=== PATIENT | male | born 1990 | race Caucasian/White ===

== ENCOUNTER 2018-07-10 16:18 | Emergency (ER) | payer SELFPAY ==
[2018-07-10 16:19] VITALS: BP 130/72; PULSE 110; RESP 18; TEMP 36.7; O2SAT 97; BMI 20.3
--- NOTE | 2018-07-10 16:48 | ED.VISSUMM ---
- ER Visit Summary Date of Service: 07/10/18 Chief Complaint: Right index finger laceration History of Present Illness: The patient is a 28 M who presents for evaluation of the right index finger laceration. Patient had a pipe fall and hit him on the finger. He is not sure of a pipe with a grinder machine setter caused the injury. He denies any loss of sensation or ability to move the finger, other than limited secondary to pain. Tetanus is up-to-date as of 4 months ago. Patient has no bleeding disorders. He is not on any blood thinners. No other injuries. Physical Examination: Patient is afebrile, well-nourished and well-developed sitting in bed in no distress. Examination of the right upper extremity shows a 2cm avulsion flap with attached skin on the distal end, crossing the radial side of the PIP joint. Wound is dirty. DIP, MCP movement intact. Patient will not flex PIP due to pain. Sensation intact distal to the injury. No other injuries noted. Test Results: Clinical Impression(s) from Imaging Studies Finger X-Ray 07/10/18 18:32 IMPRESSION: No acute bony injury of the finger. Electronically Signed: Kosta Palmer DO at 19:24 EST Tel [phone], Service support , Medications Given Discontinued Medications Cefadroxil (Duricef) 1,000 mg PO X1 ONE Stop: 07/10/18 18:16 Last Admin: 07/10/18 19:36 Dose: 1,000 mg Tetracaine/Epinephrine/Lidocaine (Let Soln) 1 applic TOPICAL X1 ONE Stop: 07/10/18 16:49 Last Admin: 07/10/18 16:54 Dose: 1 applic Emergency Department Course and Treatment: The wound was copiously irrigated under tap water. Patient was unable to tolerate further cleansing exploration of the wound but did not want to use any injectable anesthetic, thus let was applied to the wound. Achieving good anesthesia, a finger tourniquet was placed and the wound was explored in a bloodless field. The skin flap was mostly dirty and devitalized, and thus was trimmed. Exploration of the wound showed dirty internal structures, with an area concerning for macerated tendon on the radial side of the PIP joint. Unable to appropriately cleanse the wound due to embedded dirt along the wound edges and the structures exposed in the wound. The tourniquet was removed and Dr. Shea was consulted regarding dirty wound and concern for tendinous injury. He advised to cover the wound with Betadine soaked dressing, dressed with a bulky dressing, and have the patient call his office first thing in the morning to arrange a follow-up appointment. The wound was covered with nonocclusive gauze, Betadine soaked dressing, fluff 4 x 4's, and then wrapped with Kerlix. Finally an AlumaFoam splint was placed to stabilize the finger. Patient was started on Duricef and given a prescription for the same. His tetanus is already up-to-date. He was discharged home with follow-up instructions per Dr. Shea. Treatment Plan: [] Disposition: [] Impression: Right index finger 2 cm deep avulsion laceration with tendon injury This note was generated with [employer] dictation software. It may contain incorrect words, spelling, and punctuation that were not noted in review of the chart prior to signing ED Disposition - Plan for ED Patient: Disposition: Home or Assisted Living Chief Complaint: Laceration Instructions: ED Laceration Hand, ED Laceration Tendon Prescriptions: RX: Cefadroxil [Duricef] 500 mg PO BID #14 cap Referrals: Emeka Shea MD [STAFF PHYSICIAN] - 1 Day [facility] Doctor,Out of [Primary Care Provider] - Additional Instructions: Call Dr. Shea's office first thing tomorrow morning to schedule an appointment for your hand as soon as possible. In the meantime take the antibiotic twice daily as prescribed. Keep your finger bandaged, clean and dry. Do not remove the bandaging and thus instructed to by Dr. Shea. Use [id number] pain medication as needed. If you have any severe uncontrolled pain, change in color or temperature of the finger, or any other concerns, return immediately to the emergency department for another evaluation.
[2018-07-10] MEDS: Lidocaine/Epi/Tetracaine 50 ML 1 APPLIC TOPICAL (16:54)
--- NOTE | 2018-07-10 18:10 | NURSING ---
DR FADY PEDROZA
--- NOTE | 2018-07-10 18:32 | RAD_ITS ---
STUDY: X-RAY - RIGHT HAND, ATTENTION SECOND FINGER REASON FOR EXAM: Male, 28 years old. Laceration TECHNIQUE: 3 view(s) of the finger were obtained. COMPARISON: None. FINDINGS: Normal metacarpal head. Normal metacarpophalangeal joint. Normal proximal phalanx. Normal middle phalanx. Normal distal phalanx. Normal proximal interphalangeal joint. Normal distal interphalangeal joint. Probable laceration just proximal to the proximal interphalangeal joint level. No radiopaque foreign body. RAD/Finger(s) Min 2 Views IMPRESSION: No acute bony injury of the finger. Electronically Signed: Kosta Palmer DO at 19:24 EST Tel [phone], Service support ,
[2018-07-10] MEDS: Cefadroxil 500 MG CAPSULE 1000 MG PO (19:36)
--- NOTE | 2018-07-10 19:55 | DCINST.ED_ITS ---
ED Disposition - Plan for ED Patient: Disposition: Home or Assisted Living Chief Complaint: Laceration Instructions: ED Laceration Tendon, ED Laceration Hand Prescriptions: Cefadroxil [Duricef] 500 mg PO BID #14 cap Referrals: [facility] Doctor,Out of [Primary Care Provider] - Emeka Shea MD [STAFF PHYSICIAN] - 1 Day Additional Instructions: Call Dr. Shea's office first thing tomorrow morning to schedule an appointment for your hand as soon as possible. In the meantime take the antibiotic twice daily as prescribed. Keep your finger bandaged, clean and dry. Do not remove the bandaging and thus instructed to by Dr. Shea. Use [id number] pain medication as needed. If you have any severe uncontrolled pain, change in color or temperature of the finger, or any other concerns, return immediately to the emergency department for another evaluation.
[2018-07-10 20:15] VITALS: PULSE 101; RESP 14; O2SAT 97
[2018-07-10 20:19] VITALS: PULSE 101; RESP 18; O2SAT 97
--- OUTSIDE RECORDS SUMMARY | 2018-08-26 23:46 | XMS RPT_ITS ---
:1990 Author Organization OHIP Care Team Providers Name Role Phone Nicole Rendon Attending Unavailable PACO BURNETT Primary Care Unavailable VANESA MCKNIGHT Attending Unavailable MEREDITH TAPIA Consulting Unavailable HERNAN JANSEN Consulting Unavailable ZACH PINON Consulting Unavailable PROBLEMS PROBLEMS DATE TYPE CONDITION / ATTENDING STATUS SOURCE CODE 11/06/2017 Admitting Unknown / [facility] diagnosis UNK(Unknown) [facility] Repository PROCEDURES PROCEDURES No Procedure Records FoundRESULTS RESULTS EMERGENCY DEPARTMENT Observed: 07/11/2018 Status: F Source: [place] SUMMARY 12:29 AM [facility] REPOSITORY [facility] Medical Records Department [address] [place] [address] Emergency Department Summary 07/10/18 1648 MR#: [id number] Acct: [id number] Name: EDGARDO PANDEY Rep #: [id number] : 1990 28 From: Nicole Rendon MD PCP: OUT OF TOWN DOCTOR Status: DEP ER - ER Visit Summary Date of Service: 07/10/18 Chief Complaint: Right index finger laceration History of Present Illness: The patient is a 28 M who presents for evaluation of the right index finger laceration. Patient had a pipe fall and hit him on the finger. He is not sure of a pipe with a swing grinder caused the injury. He denies any loss of sensation or ability to move the finger, other than limited secondary to pain. Tetanus is up-to-date as of 4 months ago. Patient has no bleeding disorders. He is not on any blood thinners. No other injuries. Physical Examination: Patient is afebrile, well-nourished and well-developed sitting in bed in no distress. Examination of the right upper extremity shows a 2cm avulsion flap with attached skin on the distal end, crossing the radial side of the PIP joint. Wound is dirty. DIP, MCP movement intact. Patient will not flex PIP due to pain. Sensation intact distal to the injury. No other injuries noted. Test Results: Clinical Impression(s) from Imaging Studies Finger X-Ray 07/10/18 18:32 IMPRESSION: No acute bony injury of the finger. Electronically Signed: Kosta Palmer DO at 19:24 EST Tel [phone], Service support , Medications Given Discontinued Medications Cefadroxil (Duricef) 1,000 mg PO X1 ONE Stop: 07/10/18 18:16 Last Admin: 07/10/18 19:36 Dose: 1,000 mg Tetracaine/Epinephrine/Lidocaine (Let Soln) 1 applic TOPICAL X1 ONE Stop: 07/10/18 16:49 Last Admin: 07/10/18 16:54 Dose: 1 applic Emergency Department Course and Treatment: The wound was copiously irrigated under tap water. Patient was unable to tolerate further cleansing exploration of the wound but did not want to use any injectable anesthetic, thus let was applied to the wound. Achieving good anesthesia, a finger tourniquet was placed and the wound was explored in a bloodless field. The skin flap was mostly dirty and devitalized, and thus was trimmed. Exploration of the wound showed dirty internal structures, with an area concerning for macerated tendon on the radial side of the PIP joint. Unable to appropriately cleanse the wound due to embedded dirt along the wound edges and the structures exposed in the wound. The tourniquet was removed and Dr. Shea was consulted regarding dirty wound and concern for tendinous injury. He advised to cover the wound with Betadine soaked dressing, dressed with a bulky dressing, and have the patient call his office first thing in the morning to arrange a follow- up appointment. The wound was covered with nonocclusive gauze, Betadine soaked dressing, fluff 4 x 4's, and then wrapped with Kerlix. Finally an AlumaFoam splint was placed to stabilize the finger. Patient was started on Duricef and given a prescription for the same. His tetanus is already up-to-date. He was discharged home with follow-up instructions per Dr. Shea. Treatment Plan: [] Disposition: [] Impression: Right index finger 2 cm deep avulsion laceration with tendon injury This note was generated with Druidly dictation software. It may contain incorrect words, spelling, and punctuation that were not noted in review of the chart prior to signing ED Disposition - Plan for ED Patient: Disposition: Home or Assisted Living Chief Complaint: Laceration Instructions: ED Laceration Hand, ED Laceration Tendon Prescriptions: RX: Cefadroxil [Duricef] 500 mg PO BID #14 cap Referrals: Emeka Shea MD [STAFF PHYSICIAN] - 1 Day [facility] Doctor,Out of [Primary Care Provider] - Additional Instructions: Call Dr. Shea's office first thing tomorrow morning to schedule an appointment for your hand as soon as possible. In the meantime take the antibiotic twice daily as prescribed. Keep your finger bandaged, clean and dry. Do not remove the bandaging and thus instructed to by Dr. Shea. Use [id number] pain medication as needed. If you have any severe uncontrolled pain, change in color or temperature of the finger, or any other concerns, return immediately to the emergency department for another evaluation. What to do if you have Problems For any increased pain, shortness of breath, bleeding, nausea or vomiting, chest pain, or any unexpected problems, contact your Primary Care Provider. Call [facility] ([phone]) or report to the closest Emergency Room. Call 911 if necessary. 07/11/18 0029 <Electronically signed by Nicole Rendon MD> Date Nicole Rendon MD Cosigner Signature (If Indicated): Date CC: OUT OF TOWN DOCTOR DISCHARGE INSTRUCTION Observed: 07/10/2018 Status: Suzie Source: [place] 11:31 PM [facility] REPOSITORY [facility] Medical Records Department [address] [place] [address] Discharge Instruction 07/10/181953 MR#: [id number] Acct: [id number] Name: EDGARDO PANDEY Rep #: [id number] : 1990 28 From: Nicole Rendon MD PCP: OUT OF [facility] DOCTOR Status: DEP ER ED Disposition - Plan for ED Patient: Disposition: Home or Assisted Living Chief Complaint: Laceration Instructions: ED Laceration Tendon, ED Laceration Hand Prescriptions: Cefadroxil [Duricef] 500 mg PO BID #14 cap Referrals: [facility] Doctor,Out of [Primary Care Provider] - Emeka Shea MD [STAFF PHYSICIAN] - 1 Day Additional Instructions: Call Dr. Shea's office first thing tomorrow morning to schedule an appointment for your hand as soon as possible. In the meantime take the antibiotic twice daily as prescribed. Keep your finger bandaged, clean and dry. Do not remove the bandaging and thus instructed to by Dr. Shea. Use [id number] pain medication as needed. If you have any severe uncontrolled pain, change in color or temperature of the finger, or any other concerns, return immediately to the emergency department for another evaluation. What to do if you have Problems For any increased pain, shortness of breath, bleeding, nausea or vomiting, chest pain, or any unexpected problems, contact your Primary Care Provider. Call [facility] ([phone]) or report to the closest Emergency Room. Call 911 if necessary. 07/10/18 6692 <Electronically signed by Nicole Rendon MD> Date Nicole Rendon MD Cosigner Signature (If Indicated): Date CC: OUT OF TOWN DOCTOR FINGER(S) MIN 2 VIEWS Observed: 07/10/2018 Status: F Source: [place] 6:16 PM [facility] HOSPITAL REPOSITORY [facility] Imaging Services [address] [place] [address] Finger(s) Min 2 Views MR#: [id number] Acct: [id number] Name: EDGARDO PANDEY Rep #: [id number] : 1990 M 28 From: Kosta Palmer DO PCP: OUT OF TOWN DOCTOR Status: REG ER Study: Finger(s) Min 2 Views Date of Exam: 07/10/18 Exam# [id number] Ordering Dr: Nicole Rendon MD STUDY: X-RAY - RIGHT HAND, ATTENTION SECOND FINGER REASON FOR EXAM: Male, 28 years old. Laceration TECHNIQUE: 3 view(s) of the finger were obtained. COMPARISON: None. FINDINGS: Normal metacarpal head. Normal metacarpophalangeal joint. Normal proximal phalanx. Normal middle phalanx. Normal distal phalanx. Normal proximal interphalangeal joint. Normal distal interphalangeal joint. Probable laceration just proximal to the proximal interphalangeal joint level. No radiopaque foreign body. RAD/Finger(s) Min 2 Views IMPRESSION: No acute bony injury of the finger. Electronically Signed: Kosta Palmer DO at 19:24 EST Tel [phone], Service support , CC: Nicole Rendon MD; OUT OF TOWN DOCTOR Residential Instructor: Signed ED PROV NOTE Observed: 05/25/2018 Status: COMPLETED Source: [place] 2:13 PM [facility] REPOSITORY HNO ID: [id number] Author: Zach Pinon Service: (none) Author Type: Physician Type: ED Provider Notes Filed: 05/29/2018 6:39 PM Note Text: [facility] [place] [address] HEALTH INFORMATION MANAGEMENT EMERGENCY DEPARTMENT REPORT Patient: EDGARDO PANDEY ZACH PINON M.D. [id number] [birth year] 28 M Status: [facility] ER ED Date of Service: 05/25/18 CHIEF COMPLAINT Chemical exposure 4 days ago. HISTORY OF PRESENT ILLNESS Patient is a 28-year-old male brought in today with the above complaint. He apparently is working with some sort of a resin hardener that he thinks he got on his face 4 days ago. He continues to work with this at work. They wear protective suits, but he thinks he might have gotten some on his hands and this is mainly around his eyes that he is having some swelling and itching. No problems with his vision and no pain in the eyes. He has a little bit on his arms as well. No other complaints at this time. REVIEW OF SYSTEMS Otherwise negative. PAST MEDICAL HISTORY ADHD. MEDICATIONS Adderall. ALLERGIES NO KNOWN DRUG ALLERGIES. FAMILY HISTORY Noncontributory. SOCIAL HISTORY Noncontributory. PHYSICAL EXAMINATION General: A well-developed, well-nourished white male awake, alert, not in acute distress. Vitals as charted. HEENT is atraumatic. There is some puffiness around the eyes, some fine papular erythematous rash consistent with contact dermatitis. The eyes themselves look fine. There is no normal visual acuity, anterior chamber is intact, no redness in the conjunctivae. A little bit of the same papular rash on the left arm, forearm. CLINICAL DIAGNOSIS Contact dermatitis. DISPOSITION/PLAN He is going to be discharged home on hydrocortisone cream. Written off work a couple of days while they are still working with this product, so he is not continually exposed to it, and can return if worse or problems of any kind. <Electronically signed by ZACH PINON M.D.> 05/29/18 1833 ZACH PINON M.D. cc: ZACH PINON M.D. << Signature on File>> Reported By: ZACH PINON M.D. Signed By: ZACH PINON M.D. Tests performed at: [facility] [facility] [address] [place], [place] [address] EMERGENCY DEPARTMENT Observed: 05/25/2018 Status: F Source: [place] REPORT 2:13 PM [facility] [place] [address] HEALTH INFORMATION MANAGEMENT EMERGENCY DEPARTMENT REPORT Patient: EDGARDO PANDEY ZACH PINON M.D. [id number] [birth year] 28 M Status: [facility] ER ED Date of Service: 05/25/18 CHIEF COMPLAINT Chemical exposure 4 days ago. HISTORY OF PRESENT ILLNESS Patient is a 28-year-old male brought in today with the above complaint. He apparently is working with some sort of a resin hardener that he thinks he got on his face 4 days ago. He continues to work with this at work. They wear protective suits, but he thinks he might have gotten some on his hands and this is mainly around his eyes that he is having some swelling and itching. No problems with his vision and no pain in the eyes. He has a little bit on his arms as well. No other complaints at this time. REVIEW OF SYSTEMS Otherwise negative. PAST MEDICAL HISTORY ADHD. MEDICATIONS Adderall. ALLERGIES NO KNOWN DRUG ALLERGIES. FAMILY HISTORY Noncontributory. SOCIAL HISTORY Noncontributory. PHYSICAL EXAMINATION General: A well-developed, well-nourished white male awake, alert, not in acute distress. Vitals as charted. HEENT is atraumatic. There is some puffiness around the eyes, some fine papular erythematous rash consistent with contact dermatitis. The eyes themselves look fine. There is no normal visual acuity, anterior chamber is intact, no redness in the conjunctivae. A little bit of the same papular rash on the left arm, forearm. CLINICAL DIAGNOSIS Contact dermatitis. DISPOSITION/PLAN He is going to be discharged home on hydrocortisone cream. Written off work a couple of days while they are still working with this product, so he is not continually exposed to it, and can return if worse or problems of any kind. <Electronically signed by ZACH PINON M.D.> 05/29/18 1833 ZACH PINON M.D. cc: ZACH PINON M.D. << Signature on File>> Reported By: ZACH IPNON M.D. Signed By: ZACH PINON M.D. Tests performed at: [address] [address] ED PROV NOTE Observed: 05/08/2018 Status: COMPLETED Source: [place] 8:53 AM [facility] REPOSITORY HNO ID: [id number] Author: Hernan Jansen Service: (none) Author Type: Physician Type: ED Provider Notes Filed: 05/31/2018 9:35 PM Note Text: [place] [address] HEALTH INFORMATION MANAGEMENT EMERGENCY DEPARTMENT REPORT Patient: EDGARDO PANDEY HERNAN JANSEN M.D. [id number] [age] M Status: [facility] ER ED Date of Service: 05/07/18 CHIEF COMPLAINT The patient's chief complaint is reported to be sore throat. HISTORY OF PRESENT ILLNESS The patient is a 28-year-old white male who presents with sore throat, right ear pain over the last 4-5 days. No drainage. No fevers. Taken nothing for the symptoms. PAST MEDICAL HISTORY ADHD. PAST SURGICAL HISTORY Tonsillectomy, neck tumor. SOCIAL HISTORY No tobacco use. MEDICATIONS Adderall. ALLERGIES NO KNOWN DRUG ALLERGIES. REVIEW OF SYSTEMS General: No fevers or chills. Ears: Positive for right ear pain. No drainage. Mouth: Positive for sore throat. Cardiac: No chest pain or palpitations. Pulmonary: No shortness of breath or cough. PHYSICAL EXAMINATION General examination reveals a well-developed, well-nourished male resting comfortably. Vital Signs: Blood pressure 117/77, temperature 98.7, pulse 88, respiratory rate 18, pulse oximetry is 98%. Examination of the head reveals the head to be normocephalic and atraumatic. Examination of the ears reveals right TM to be clear with no erythema or effusion. Left TM is clear with no erythema or effusion. Examination of the oropharynx does reveal some erythema of the posterior pharynx. No exudate. Airway is patent. No swelling in the mouth. No drainable abscesses. Neck is supple. No cervical lymphadenopathy. Cardiovascular examination reveals normal S1, S2, regular rate and rhythm. No murmurs, gallops, or rubs. Pulmonary examination reveals breath sounds to be clear to auscultation bilaterally with no wheezes, rales, or rhonchi. IMPRESSION Acute pharyngitis. PLAN Plan will be for discharge. Treat empirically with course of antibiotic therapy, with amoxicillin, given first dose here. Given dose of prednisone for antiinflammatory effect. Patient will be discharged in stable condition. Patient to follow up with primary care provider. <Electronically signed by HERNAN JANSEN M.D.> 05/11/18 1956 HERNAN JANSEN M.D. cc: SILVA BARRIENTOS D.O.; HERNAN JANSEN M.D. << Signature on File>> Reported By: HERNAN JANSEN M.D. Signed By: HERNAN JANSEN M.D. Tests performed at: [address] [address] EMERGENCY DEPARTMENT Observed: 05/08/2018 Status: F Source: [place] REPORT 8:53 AM [facility] [place] [address] HEALTH INFORMATION MANAGEMENT EMERGENCY DEPARTMENT REPORT Patient: EDGARDO PANDEY HERNAN JANSEN M.D. [id number] [age] M Status: [facility] ER ED Date of Service: 05/07/18 CHIEF COMPLAINT The patient's chief complaint is reported to be sore throat. HISTORY OF PRESENT ILLNESS The patient is a 28-year-old white male who presents with sore throat, right ear pain over the last 4-5 days. No drainage. No fevers. Taken nothing for the symptoms. PAST MEDICAL HISTORY ADHD. PAST SURGICAL HISTORY Tonsillectomy, neck tumor. SOCIAL HISTORY No tobacco use. MEDICATIONS Adderall. ALLERGIES NO KNOWN DRUG ALLERGIES. REVIEW OF SYSTEMS General: No fevers or chills. Ears: Positive for right ear pain. No drainage. Mouth: Positive for sore throat. Cardiac: No chest pain or palpitations. Pulmonary: No shortness of breath or cough. PHYSICAL EXAMINATION General examination reveals a well-developed, well-nourished male resting comfortably. Vital Signs: Blood pressure 117/77, temperature 98.7, pulse 88, respiratory rate 18, pulse oximetry is 98%. Examination of the head reveals the head to be normocephalic and atraumatic. Examination of the ears reveals right TM to be clear with no erythema or effusion. Left TM is clear with no erythema or effusion. Examination of the oropharynx does reveal some erythema of the posterior pharynx. No exudate. Airway is patent. No swelling in the mouth. No drainable abscesses. Neck is supple. No cervical lymphadenopathy. Cardiovascular examination reveals normal S1, S2, regular rate and rhythm. No murmurs, gallops, or rubs. Pulmonary examination reveals breath sounds to be clear to auscultation bilaterally with no wheezes, rales, or rhonchi. IMPRESSION Acute pharyngitis. PLAN Plan will be for discharge. Treat empirically with course of antibiotic therapy, with amoxicillin, given first dose here. Given dose of prednisone for antiinflammatory effect. Patient will be discharged in stable condition. Patient to follow up with primary care provider. <Electronically signed by HERNAN JANSEN M.D.> 05/11/181955 HERNAN JANSEN M.D. cc: SILVA BARRIENTOS D.O.; HERNAN JANSEN M.D. << Signature on File>> Reported By: HERNAN JANSEN M.D. Signed By: HERNAN JANSEN M.D. Tests performed at: [address] [address] PROGRESS Observed: 11/06/2017 Status: COMPLETED Source: [place] 6:55 PM [facility] [place] REPOSITORY HNO ID: [id number] Author: Provider [facility] Service: (none) Author Type: Physician Type: Progress Notes Filed: 05/31/2018 4:25 PM Note Text: FIRST CARE DEPARTMENT [address] [place] [address] To Whom This May Concern: EDGARDO PANDEY has been seen at [facility] on 11/06/17. Please excuse his SCHOOL / WORK obligations due to his ailment for the period indicated below. EXCUSE SLIP Period Covered Today 11/06/17 Return On 11/08/17 <Electronically signed by Miranda ELIZALDENZulayPZulay> 11/06/17 1855 MEREDITH TAPIANZulayPZulay << Signature on File>> Reported By: MEREDITH TAPIANChristelle Signed By: MEREDITH TAPIANChristelle Tests performed at: [address] [address] Observed: 11/06/2017 Status: F Source: [facility] 6:44 PM HOSPITAL REPOSITORY Performed at: [facility] [address] [place] [address] STREP SCREEN POSITIVE REFERENCE RANGE NORMAL RESULT IS NEGATIVE. PROGRESS Observed: 11/06/2017 Status: COMPLETED Source: [place] 6:43 PM [facility] REPOSITORY HNO ID: [id number] Author: Provider [facility] Service: (none) Author Type: Physician Type: Progress Notes Filed: 05/31/2018 4:25 PM Note Text: [facility] [place] [address] FIRST CARE REPORT Patient: EDGARDO PANDEY MEREDITH TAPIANZulayPZulay [id number] [age] M Status: REG POV FC Date of Service: 11/06/17 Report Date AND Time: 11/06/17 1843 HPI History Of Present Illness Chief Complaint Headache (FC) CC History patient states he has had a headache all day. Sorethroat, vomited once, and sinus pressure. No OTC medications. Feels as though his balance is off. denies any ear pain, numbness or tingling in his extremities. Denies any exposure to communicable disease(s). Vital Signs Vital Signs First Last Result Date Time Result Date Time Pulse Ox 95 11/06 1829 95 11/06 1829 B/P 102/67 11/06 1829 102/67 11/06 1829 Temp 99.7 11/06 1829 99.7 11/06 1829 Pulse 97 11/06 1829 97 11/06 1829 Resp 16 11/06 1829 16 11/06 1829 Medications Discontinued Scripts Esomeprazole* Magnesium (Nexium*) 20 MG PO QDAY Esomeprazole* Magnesium (Nexium*) 20 MG PO QDAY #10 TAB Prov: 02/08/13 DC: 11/06/17 1801 Completed Prescribed Dose Ketoprofen* (Orudis*) 75 MG PO Q8H PRN Ketoprofen* (Orudis*) 75 MG PO Q8H PRN #15 CAP Prov: 07/26/11 DC: 11/06/17 1801 Completed Prescribed Dose Cephalexin* (Keflex*) 500 MG PO QID Cephalexin* (Keflex*) 500 MG PO QID #28 CAP Prov: 01/06/15 DC: 11/06/17 1801 Completed Prescribed Dose Hydrocodone/Apap* 5/32 ([place]* 5/325) 0.5-1 TAB PO Q6HPRN PRN pain Hydrocodone/Apap* 5/32 ([place]* 5/325) 0.5-1 TAB PO Q6HPRN PRN pain #6 TAB Prov: 01/06/15 DC: 11/06/17 1800 Completed Prescribed Dose Ondansetron* Hcl (Zofran*) 4 MG PO Q6HPRN PRN NAUSEA Ondansetron* Hcl (Zofran*) 4 MG PO Q6HPRN PRN NAUSEA #10 TAB Prov: 08/20/15 DC: 11/06/17 1800 Completed Prescribed Dose Reported Medications Amphetamine Salt Combination* (Adderall*) Discontinued Reported Medications . (No Home Medications) Allergies Coded Allergies: No Known Drug Allergies (11/06/17) Patient Health History Medical Problems Nausea AND vomiting No active medical problems Strep throat Surgical Problems Hx of lymph node excision Hx of tonsillectomy Social History Problems Non-smoker OARRS Accessed and Reviewed NO Review of Systems General Denies: Body Aches, Fever, Chills. Skin No: Rash. Head Headaches. Denies: Head Injury. Eyes Denies: Watery, Matted, Redness. Ear Denies: Ear Pain. Nose Nasal Congestion. Mouth No: Sore Lesions in the Mouth. Throat Sore Throat. Neck Denies: Neck Pain. Heart/Cardiovascular Denies: Chest Pain, Chest Pressure. Respiratory Denies: Cough, Dyspnea, Wheezing. Gastrointestinal Vomiting. Denies: Abdominal Pain, Diarrhea. Physical Examination General Alert, Oriented X3, Non-toxic Apperance, Cooperative, No Acute Distress Skin [place], Warm, and Dry, Well Hydrated, No Pathology Noted Head Normocephalic, Atraumatic Eyes PERRL, Intact Extraocular Muscle, Eyelids Appear Normal Ears Normal Tympanic Membranes, No mastoid tenderness, No Redness, No Fluids, No Bulging Noted, No Lesions on Auricles, No Deformity Noted Nose No Nasal Discharge, Mucosa [place], Septum Midline Mouth Mouth pink/wet, Dentition Intact, Tongue Midline, Motion Symmetrical, Smile AND Frown Intact Throat Uvula Midline Non-Edema, Redness Neck Neck Supple, No Mennigitis Symptoms, No Cervical Adenopathy, Trachea Midline, No Palpable Thyromegaly Heart/Cardiovascular Regular Rate and Rhythm, Normal S-1, S-2 Respiratory Lungs Are Clear, Pt Speaking Full Sentence, No Wheezes, No Accessory Muscle Use, No Rhonchi Noted, Thorax symmetric, Thorax w/ Good Excursion, No Added Sounds AANDP Lobes Extremities Skin Color Normal, Warm to Touch, No Edema Musculoskeletal Full ROM in all joints, MSP Intact Neurological Normal Speech, Strength at 5/5 X4 Ext, Normal Tone, Sensation Intact, Cranial Nerves 2-12 NL Procedure Note Offered Toradol injection for headache - Patient declined Offered Tylenol or Motrin for headache - Patient declined Impression And Plan Discharge Instructions Increase Liquids, Tylenol every 4 hrs, Salt water gargle 3-4xday Special Instructions o Follow up with your Primary Care Physician in 2-3 days if no improvement in your condition. o Call or return to [facility] if you experience problems relating to your visit. All medications and their side effects were explained to the patient and were understood. At home instructions were explained to the patient and were understood. Report to the [facility] Emergency Department if any further problems occur Or Call . Strep test completed in [facility] -Positive Change out toothbrush 24 hours after starting antibotic and again at completion of medication regimen Utilize Tylenol/Motrin for pain and fever control Diagnosis 1. Strep throat *Prescriptions Prescriptions (FC) Medication Dose/Rte/Freq Days Qty Entered Max Daily Dose Amoxicillin* (Amoxil*) 500 MG PO BID 10 20 11/06/17 Strength: 500 MG CAP 1854 <Electronically signed by Miranda ELIZALDENZulayPZulay> 11/06/17 1855 MEREDITH TAPIANZulayPZulay << Signature on File>> Reported By: MEREDITH TAPIANChrsitelle Signed By: MEREDITH TAPIANChristelle Tests performed at: [place] [id number] ALLERGIES ALLERGIES DATE TYPE / CODE NAME / CODE REACTION SEVERITY SOURCE 07/10/2018 Drug No Known Unknown [facility] Allergy/4160 Allergies/F00 [facility] [address](SNOMED [id number](RXNOR Repository CT) M) ENCOUNTERS ENCOUNTERS ADMIT/DISCHARGE ACCOUNT ADMITTING ENCOUNTER LOCATION SOURCE NUMBER CLASS 07/10/2018/ [id number] Emergency [facility] 8 0 [facility] ing:ED Repository 05/25/2018/ [id number] Emergency UNIBuilding:E [place] 8 8 D [facility] Hospital Repository 05/07/2018/ [id number] Emergency UNIBuilding:E [place] 8 9 D [facility] Hospital Repository 11/06/2017 [id number] Ambulatory UNIBuilding:F [place] 6 C [facility] Repository PAYERS PAYERS ENCOUNTER GUARANTOR PAYER SUBSCRIBER SOURCE 07/10/2018 [id number] Insurance:SELF PAY [facility] [address], [facility] [address]Kmd: (330) Number: Effective Repository [phone] () Date:2018-07-10 05/25/2018 EDGARDO Daily [id number] Insurance:SELF PAY [facility] [address] MD INSURANCEPolicy Repository [address]Fkb: (330) Number: [phone] () [id number] Date: 05/07/2018 EDGARDO T Primary ED[facility]ARDO T [facility] [id number] JAZMYN Insurance:SELF PAY [facility] [address] [place] INSURANCEPolicy Repository [address]Eae: (330) Number: [phone] () [id number] Date: 11/06/2017 EDGARDO T Primary EDGARDO T [facility] [id number] JAZMYN [facility] [address]Bnt: (330) PPOPolicy Number: [phone] () [id number] Date: 11/06/2017 Secondary EDGARDO T [facility] Insurance:[facility] - Repository PPOPolicy Number: [id number] Date:
== END 2018-07-10 20:19 | disposition home or self-care (01) ==
PROVIDERS: Emergency Provider Emergency Medicine
DX: S66.120A Laceration of flexor muscle, fascia and tendon of right index finger at wrist and hand level, initial encounter (principal); S61.210A Laceration without foreign body of right index finger without damage to nail, initial encounter; W22.8XXA Striking against or struck by other objects, initial encounter; Y93.9 Activity, unspecified; Y92.9 Unspecified place or not applicable
CPT/HCPCS: 73140; 99284